=== PATIENT | male | born 1950 | race Caucasian/White ===

== ENCOUNTER 2016-12-04 07:30 | Inpatient (IN) | payer BC, OTHER ==
[~2016-12-04 07:30] MED LIST: CHLORHEXIDINE GLUC HIBICLENS 118 ML BTL TP ONE; ceFAZolin 2 GM/DEXTROSE 100 ML IV ONE
[2016-12-04] MEDS ORDERED: THROMBIN (RECOMBINANT) 20,000 UNIT VIAL TP ONE (08:02)
[2016-12-04] MEDS ORDERED: BACITRACIN 50,000 UNITS/10 ML SYR IRR ONE ×2 (08:03→13:41)
[2016-12-04] MEDS ORDERED: BUPIVACAINE/EPI 0.25% 30 ML SDV ONE (08:03)
[2016-12-04] MEDS ORDERED: LIDOCAINE 1% 5 ML SDV ONE (08:40)
[2016-12-04] MEDS ORDERED: LR 1,000 ML IV ONE (09:10)
[2016-12-04] MEDS ORDERED: LIDOCAINE 1% 5 ML SDV ID PRN (09:10)
[2016-12-04] MEDS ORDERED: MIDAZOLAM 2 MG/2 ML VIAL ONE (09:21)
[2016-12-04] MEDS ORDERED: ROCURONIUM 100 MG/10 ML VIAL ONE (09:31)
[2016-12-04] MEDS ORDERED: METOCLOPRAMIDE 10 MG/2 ML VIAL ONE (09:31)
[2016-12-04] MEDS ORDERED: PHENYLEPHRINE 10 MG/ML SDV ONE (09:31)
[2016-12-04] MEDS ORDERED: PROPOFOL/EMULSION 500 MG/50 ML BOTTLE IV ONE ×5 (09:31→13:56)
[2016-12-04] MEDS ORDERED: LIDOCAINE 2% 100 MG/5 ML SYR IVP ONE (09:31)
[2016-12-04] MEDS ORDERED: DEXAMETHASONE 4 MG/ML VIAL ONE ×2 (09:31)
[2016-12-04] MEDS ORDERED: SUGAMMADEX SODIUM 200 MG/2 ML VIAL IVP ONE (14:45)
[2016-12-04] MEDS ORDERED: BISACODYL 10 MG SUPP PR PRN (15:11)
[2016-12-04] MEDS ORDERED: NALOXONE HCL 0.4 MG/ML INJ IVP PRN (15:11)
[2016-12-04] MEDS ORDERED: ONDANSETRON DISINTEGRATING 4 MG TAB PO PRN (15:11)
[2016-12-04] MEDS ORDERED: MAGNESIUM HYDROXIDE 30 ML UDCUP PO PRN (15:11)
[2016-12-04] MEDS ORDERED: ONDANSETRON 4 MG/2 ML VIAL IVP PRN ×2 (15:11)
[2016-12-04] MEDS ORDERED: DIAZEPAM 5 MG TAB PO PRN (15:11)
[2016-12-04] MEDS ORDERED: HYDROmorphONE/DILAUDID 6 MG/30 ML PCA IV PRN (15:11)
[2016-12-04] MEDS ORDERED: HYDROmorphONE/DILAUDID 1 MG/ML SYR IVP PRN (15:11)
[2016-12-04] MEDS ORDERED: DIAZEPAM 10 MG/2 ML SYR IVP PRN (15:11)
[2016-12-04] MEDS ORDERED: TEMAZEPAM 15 MG CAP PO PRN (15:11)
[2016-12-04] MEDS ORDERED: oxyCODONE IR 5 MG TAB PO PRN (15:11)
[2016-12-04] MEDS ORDERED: diphenhydrAMINE 25 MG CAP PO PRN (15:11)
[2016-12-04] MEDS ORDERED: LACTULOSE 20 GM/30 ML UDCUP PO PRN (15:11)
[2016-12-04] MEDS ORDERED: NS W/ 20 KCl/L 1,000 ML IV SCH (15:15)
--- NOTE | 2016-12-04 15:21 | SOAPPROG ---
SOAP Progress Note Assessment/Plan: Post Op Visit: S: Awake and alert. NAD. Pt with expected lower back pain O: AFVSS/PERRLA/EOMI no droop CN 2-12 grossly intact +lt touch 5/5 BUE/BLE = CDI GEMA in place A/P: 65 yo male that is s/p TLIF L4-S1 -orders in place -call with any questions or concerns -pt was seen by Dr Peñaloza as well 12/04/16 15:19 ICD10 Worksheet Patient Problems: Problems Problem Status Onset Arthrodesis status Acute Lumbago Acute Lumbar radicular pain Acute Lumbar stenosis Acute - ICD10 Problem Qualifiers (1) Lumbar stenosis (2) Lumbar radicular pain (3) Arthrodesis status (4) Lumbago Qualifiers: Chronicity: C Back pain laterality: B Sciatica presence: S Sciatica laterality: S
--- NOTE | 2016-12-04 16:13 | GOP ---
DATE OF OPERATION: 12/04/2016 SURGEON: Dionisio Peñaloza MD [employer] DRIVER: SONIA Chappell. PREOPERATIVE DIAGNOSIS: 1. Lumbar spondylosis with lumbar spondylolisthesis L4-5. 2. Severe lumbar disk degenerative disease at L5-S1 with collapse of the disk space and compression of the bilateral exiting L5 nerve roots at L5-S1. 3. Bilateral lumbosacral radiculopathy, low back pain. POSTOPERATIVE DIAGNOSIS: 1. Lumbar spondylosis with lumbar spondylolisthesis L4-5. 2. Severe lumbar disk degenerative disease at L5-S1 with collapse of the disk space and compression of the bilateral exiting L5 nerve roots at L5-S1. 3. Bilateral lumbosacral radiculopathy, low back pain. PROCEDURE PERFORMED: 1. Posterolateral and intervertebral arthrodesis with decompression bilaterally at L4-5 and L5-S1 ( [id number], [id number]). 2. Placement of nonanchored biomechanical intervertebral device L4-5, L5-S1 (62313 x 2). 3. Same incision bone graft harvest, microscope, posterior-lateral segmental instrumentation (55988 ). 4. Spinal stereotaxy. FINDINGS: ESTIMATED BLOOD LOSS: 400 cc. INDICATIONS: Mr. Flores is a 65-year-old with terrible low back pain that is growing worse despit e conservative management with bilateral lumbosacral radiculopathy and radiating pain, both in the l eft and the right leg all the way down to the foot with numbness, and it is particularly his right f oot. MRI demonstrated spondylolisthesis and severe stenosis at L4-5. L5-S1 demonstrated really kayla y severe bilateral recess stenosis. There is no central stenosis, but there was also terrible bilat eral foraminal stenosis for the exiting L5 nerve roots. I suggested 2-level fusion with an attempt to expand the L5-S1 interspace and open up the neural foramen as well as bilateral decompressions at L5-S1 and L4-5. The risk of nerve injury, spinal fluid leak, continued symptoms, pseudoarthrosis, adjacent segment disease, infection, screw and hardware malposition and malfunction and fracture as well as the risk of major vascular injury was discussed. He knew the surgery was relatively routine and had a high probability of success but sometimes fails. He understood this and wanted to procee d. DESCRIPTION OF PROCEDURE: The patient was taken to the operating room and placed in the supine posi tion. General anesthesia was begun. He was flipped prone onto the Lukasz table. Care was taken t o pad all points of contact. His back was sterilely prepped and draped in usual fashion. We had to take careful positioning technique with the left arm which was actually tucked at his side. We wer e unable to get it either below him or up above his head because of left shoulder issues. We were a ble to tuck at his side, and he was then sterilely prepped and draped. The O-arm was introduced hussein rilely to the field. A localizing x-ray was taken. We made a 7-1/2 cm incision above the L4-5, 5-1 interspace. The subcutaneous tissue was dissected using Bovie cautery down through the fascia, and a subperiosteal dissection was made down the inferior lamina of L3, the laminae of L4, L5, and the sacrum was exposed. We decorticated and removed to the bilateral hypertrophic facets bilaterally at L4-5, 5-1, decorticated the TPs of L4-L5 and S1 to create posterolateral arthrodesis in the facet j oints. We attached a Stealth reference frame and using frameless Stealth stereotaxy, placed pedicle screws bilaterally at L4, L5, and S1. We placed 3 bent rods down over the screws and used these to reduce the spondylolisthesis at 4-5. It was reduced to grade 0 spondylolisthesis. We final tighte leighton the cap/ screws according to company specification after distracted between L4-5 and S1. We use d 70 mm rods. We then removed the L5 spinous process, the inferior L4 spinous process for autologou s grafting purposes, introduced the operating microscope and drilled bilateral laminectomies at L4-5 , 5-1. There was really remarkable stenosis at L4-5 and very severe bilateral recess stenosis at L5 -S1 that was really rather impressive, compressing the S1 nerve roots and pushing them medially into the spinal canal. These were completely decompressed down to the mid pedicle of S1, and a nice dec ompression was obtained. We opened both neural foramen at L5-S1. At L4-5, we also performed forami notomies bilaterally. We then removed the left L4-5, 5-1 facet and decompressed the exiting roots a t those levels, and then under the microscope we removed the L5-S1 disk and its cartilaginous endpla shauna. We roughened the subchondral bone to create arthrodesis at that level. We went to L4-5 where we did likewise remove the disk and the cartilaginous endplates from the left-hand side. We roughen ed the subchondral bone to create arthrodesis at L4-5. This level took longer than the L5-S1 level. We placed a small amount of BMP into the intervertebral space, sized both with the [employer] eleva te trials, and then chose a 7 x 28 mm for 5-1 and a 9 x 28 mm for L4-5. We packed bony autograft in prior to insertion of the device. We inserted the device under fluoroscopic guidance and expanded it under fluoroscopic guidance, and they were both in excellent position. We then placed bone poste rolaterally bilaterally from L4-S1. To conclude our arthrodesis placed a subfascial drain and then closed the incision in multiple layers using Vicryl sutures. A running PDS was placed in the skin i tself. There were no complications. Patient tolerated the procedure well. COMPLICATIONS: None. INSTRUMENTATION USED: [employer] pedicle screw instrumentation with elevate expandable cages, a 9 x 28 mm cage at 4-5 and a 7 x 28 mm cage at L5-S1. We used a [employer] 475 system. /[id number]/MODL
[2016-12-04] MEDS ORDERED: fentaNYL 100 MCG/2 ML INJ ONE (16:14)
[2016-12-04] MEDS: HYDROCODONE/APAP 10/325 TAB PO PRN ×2 (18:00→21:30)
[2016-12-04] MEDS ORDERED: FAMOTIDINE 20 MG/NACL 50 ML IV SCH (21:00)
[2016-12-04] MEDS: SENNOSIDES/DOCUSATE SODIUM TAB PO SCH (21:29)
[2016-12-04] MEDS: clonazePAM 0.5 MG TAB PO SCH (21:29)
[2016-12-04] MEDS: morphINE SR 15 MG TAB PO SCH (21:30)
[2016-12-04] MEDS: MELATONIN 3 MG TAB PO SCH (21:30)
[2016-12-05] MEDS ORDERED: CANN-EASE 2 GM TUBE TP ONE (02:08)
[2016-12-05] MEDS: HYDROCODONE/APAP 10/325 TAB PO PRN ×4 (02:36→22:06)
[2016-12-05 05:30] LABS: % IMMATURE GRANULYOCYTES 0.4 % (0.0-1.1); ABSOLUTE IMMATURE GRANULOCYTES 0.05 10^3/uL (0.00-0.10); ADD DIFF? NO; ADD MORPH? NO; ADD SCAN? NO; ATYPICAL LYMPHOCYTE FLAG 0 (0-99); FRAGMENT RBC FLAG 0 (0-99); HEMATOCRIT 38.1 % (40.0-51.0); HEMOGLOBIN 12.7 g/dL (13.7-17.5); LEFT SHIFT FLG 0 (0-99); LIPEMIA HEMOLYSIS FLAG 80 (0-99); MEAN CELL HEMOGLOBIN CONCENTR. 33.3 g/dL (32.4-36.7); MEAN CELL VOLUME 89.9 fL (81.5-99.8); MEAN PLATELET VOLUME 9.5 fL (8.7-11.7); PLATELET CLUMPS FLAG 0 (0-99); PLATELET COUNT 163 10^3/uL (150-400); RED BLOOD CELL COUNT 4.24 10^6/uL (4.40-6.38)
[2016-12-05 05:44] LABS: ANION GAP 6 mEq/L (8-16); CALCIUM 8.9 mg/dL (8.5-10.4); CARBON DIOXIDE 24 mEq/l (22-31); CHLORIDE 107 mEq/L (97-110); GLOMERULAR FILTRATION RATE > 60; GLUCOSE 110 mg/dL (70-100); POTASSIUM 4.5 mEq/L (3.5-5.2); SODIUM 137 mEq/L (134-144)
--- NOTE | 2016-12-05 07:59 | NEUSURGPN ---
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 Pt with expected lower back pain. No dunn/neck/chest/abd or gu complaints. No f/c/n/v/d. Objective: AFVSS/PERRLA/EOMI no droop CN 2-12 grossly intact +lt touch 5/5 BUE/BLE = CDI GEMA in place Neuro Check Frequency: per routine Urinary Catheter in Place: No Catheter Insertion Date: 12/04/16 - Physician Discussed Patient with DrJessy: Jh Patient Seen by : Jh Neurosurgery Physical Exam - Vitals, I&O, Labs I and O 12/04/16 12/05/16 12/06/16 05:59 05:59 05:59 Intake Total 2550 Output Total 1875 Balance 675 Weight 102.058 kg Intake: Oral (ml) 950 IV Intake (ml) 900 IV Infused (ml) 700 Famotidine 20 mg/NaCl 50 50 ml @ 200 mls/hr IV Q12HRS [facility] Rx#:[id number] NS W/ 20 KCl/L 1,000 ml @ 600 75 mls/hr IV CONT [facility] Rx #:[id number] ceFAZolin 1 GM/DEXTROSE 50 50 ml @ 200 mls/hr IV Q8H [facility] Rx#:[id number] Output: Urine (ml) 1000 Catheter 1000 Estimated Blood Loss (ml) 400 Wound Drainage (ml) 405 #1 Back Lukasz Miguel 405 Wound Drainage (ml) 70 Back Lukasz Miguel 70 Other: Intake Quantity Yes Sufficient Number of Voids Catheter 1 Vital Signs Temp Pulse Resp BP Pulse Ox 37.0 C 62 14 93/62 L 95 12/05/16 07:22 12/05/16 07:22 12/05/16 07:22 12/05/16 07:22 12/05/16 07:22 Laboratory Results 12/05/16 05:12 12/05/16 05:12 ICD10 Worksheet Patient Problems: Problems Problem Status Onset Arthrodesis status Acute Lumbago Acute Lumbar radicular pain Acute Lumbar stenosis Acute - ICD10 Problem Qualifiers (1) Lumbar stenosis (2) Lumbar radicular pain (3) Arthrodesis status (4) Lumbago Qualifiers: Chronicity: C Back pain laterality: B Sciatica presence: S Sciatica laterality: S
[2016-12-05] MEDS: morphINE SR 15 MG TAB PO SCH ×2 (10:16→22:07)
[2016-12-05] MEDS: METHOCARBAMOL 750 MG TAB PO PRN ×2 (10:17→18:09)
[2016-12-05] MEDS: FAMOTIDINE 20 MG TAB PO SCH ×2 (10:17→22:06)
[2016-12-05] MEDS: SENNOSIDES/DOCUSATE SODIUM TAB PO SCH ×2 (10:18→22:07)
[2016-12-05] MEDS: LISINOPRIL 10 MG TAB PO SCH (10:19)
[2016-12-05] MEDS: POLYETHYLENE GLYCOL 3350 17 GM PKT PO PRN (10:19)
[2016-12-05] MEDS: ATORVASTATIN CALCIUM 10 MG TAB PO SCH (10:19)
[2016-12-05] MEDS: clonazePAM 0.5 MG TAB PO SCH (22:06)
[2016-12-05] MEDS: MELATONIN 3 MG TAB PO SCH (22:06)
[2016-12-06] MEDS: HYDROCODONE/APAP 10/325 TAB PO PRN (05:45)
--- NOTE | 2016-12-06 08:24 | NEUSURGPN ---
Assessment/Plan: Assessment: 65 yo male that is s/p TLIF L4-S1 POD #2 Plan: -s/p TLIF at L4-S1: pt with expected lower back pain, legs feel fine -post op xrays show stable hardware -PT/OT pending -brace when out of bed -GEMA removed -Continue PO meds -call with any questions or concerns -pt d/w Dr Peñaloza as well Subjective: Pt resting in bed, denies any new or worsening symptoms. Ambulating well. Objective: AAOx3 NAD VSS MAEx4 Motor 5/5 BLE Incision cdi +LT Urinary Catheter in Place: No Catheter Insertion Date: 12/04/16 - Physician Discussed Patient with : Jh Neurosurgery Physical Exam - Vitals, I&O, Labs I and O 12/05/16 12/06/16 12/07/16 05:59 05:59 05:59 Intake Total 2550 450 450 Output Total 1875 145 Balance 675 305 450 Weight 102.058 kg Intake: Oral (ml) 950 450 450 IV Intake (ml) 900 IV Infused (ml) 700 Famotidine 20 mg/NaCl 50 50 ml @ 200 mls/hr IV Q12HRS [facility] Rx#:[id number] NS W/ 20 KCl/L 1,000 ml @ 600 75 mls/hr IV CONT [facility] Rx #:[id number] ceFAZolin 1 GM/DEXTROSE 50 50 ml @ 200 mls/hr IV Q8H [facility] Rx#:[id number] Output: Urine (ml) 1000 Catheter 1000 Estimated Blood Loss (ml) 400 Wound Drainage (ml) 405 145 #1 Back Lukasz Miguel 405 145 Wound Drainage (ml) 70 Back Lukasz Miguel 70 Other: Intake Quantity Yes Sufficient Number of Voids Catheter 1 Toilet 2 Vital Signs Temp Pulse Resp BP Pulse Ox 37.6 C 68 16 132/78 H 91 L 12/06/16 08:19 12/06/16 08:19 12/06/16 08:19 12/06/16 08:19 12/06/16 08:19 Laboratory Results 12/05/16 05:12 12/05/16 05:12 ICD10 Worksheet Patient Problems: Problems Problem Status Onset Arthrodesis status Acute Lumbago Acute Lumbar radicular pain Acute Lumbar stenosis Acute
[2016-12-06] MEDS: SENNOSIDES/DOCUSATE SODIUM TAB PO SCH ×2 (09:03→21:22)
[2016-12-06] MEDS: morphINE SR 15 MG TAB PO SCH ×2 (09:03→21:22)
[2016-12-06] MEDS: FAMOTIDINE 20 MG TAB PO SCH ×2 (09:03→21:21)
[2016-12-06] MEDS: LISINOPRIL 10 MG TAB PO SCH (09:03)
[2016-12-06] MEDS: ATORVASTATIN CALCIUM 10 MG TAB PO SCH (09:03)
[2016-12-06] MEDS: POLYETHYLENE GLYCOL 3350 17 GM PKT PO PRN (12:02)
[2016-12-06] MEDS: ACETAMINOPHEN 325 MG TAB PO PRN (17:12)
[2016-12-06 17:23] LABS: COLOR YELLOW; LEUKOCYTE ESTERASE,URINE NEGATIVE (NEGATIVE); NITRITE,URINE NEGATIVE (NEGATIVE)
[2016-12-06 17:25] LABS: ANION GAP 10 mEq/L (8-16); CALCIUM 9.2 mg/dL (8.5-10.4); CARBON DIOXIDE 26 mEq/l (22-31); CHLORIDE 99 mEq/L (97-110); CREATININE 1.2 mg/dL (0.7-1.3); GLOMERULAR FILTRATION RATE > 60; GLUCOSE 119 mg/dL (70-100); POTASSIUM 4.6 mEq/L (3.5-5.2); SODIUM 135 mEq/L (134-144)
[2016-12-06 17:41] LABS: HEMATOCRIT 38.1 % (40.0-51.0); HEMOGLOBIN 12.6 g/dL (13.7-17.5); MEAN CELL HEMOGLOBIN 30.3 pg (27.9-34.1); MEAN CELL HEMOGLOBIN CONCENTR. 33.1 g/dL (32.4-36.7); MEAN CELL VOLUME 91.6 fL (81.5-99.8); RED BLOOD CELL COUNT 4.16 10^6/uL (4.40-6.38); RED CELL DISTRIBUTION WIDTH 13.1 % (11.5-15.2)
[2016-12-06] MEDS: clonazePAM 0.5 MG TAB PO SCH (21:21)
[2016-12-06] MEDS: MELATONIN 3 MG TAB PO SCH (21:21)
--- NOTE | 2016-12-06 23:44 | GCON ---
INTERNAL MEDICINE CONSULTATION DATE OF CONSULTATION: 12/06/2016 REFERRING PHYSICIAN: SHAMAR Reyes SURGEON: Dr. Dionisio Peñaloza. REASON FOR CONSULTATION: Medical opinion regarding possible pneumonia. HISTORY OF PRESENT ILLNESS: The patient is a 65-year-old male who underwent a TLIF of L4 through S1 . He is postoperative day #2 and was scheduled to go home today. Instead, he spiked a high fever a t 4 o'clock of 38.8. He felt really lousy and weak. He is developing a worsening sore throat. He has had minimal cough. He is feeling a little better now. He did drop his oxygen saturations a lit tle to 89% on room air. PAST MEDICAL HISTORY: 1. Hypertension. 2. Hyperlipidemia. 3. Very mild asthma. MEDICATIONS: Please see computer record for full detailed list. ALLERGIES: No known drug allergies. SOCIAL HISTORY: No smoking. Occasional alcohol. He lives with his . REVIEW OF SYSTEMS: Complete review of systems obtained. Review of systems is negative regarding co nstitutional, HEENT, GI, pulmonary, vascular, , hematology, skin, musculoskeletal, endocrine, psyc h except for positives as per HPI. FAMILY HISTORY: Reviewed and noncontributory to presenting complaint. PHYSICAL EXAMINATION: GENERAL: Well-developed, well-nourished male, in no acute distress. VITAL S IGNS: Temperature is 38.8, pulse 71, blood pressure 139/65, saturating 89% on room air. HEENT: No rmal conjunctivae. Pupils react to light. ENT: Normal ears and nose. Hearing intact. Normal winter th. Oropharynx moist. NECK: Trachea midline. No thyromegaly. CHEST: Normal effort. Lungs devika r to auscultation bilaterally. CARDIOVASCULAR: Regular rate and rhythm. No murmur. No lower extr emity edema. ABDOMEN: Soft, nontender. No hepatosplenomegaly. SKIN: Warm, dry, intact. No rash . MUSCULOSKELETAL: No cyanosis or clubbing. Strength 5/5 upper and lower extremities. NEUROLOGIC : Cranial nerves intact. Normal sensation to light touch. PSYCH: Alert and oriented x3. Normal mood and affect. Normal judgment. Normal memory. LABORATORY: White count 7.69, hematocrit 38.1, platelets . Sodium 135, potassium 4.6, chloride 99, bicarb 26, BUN 23, creatinine 1.2, glucose 119. Urinalysis is negative. Chest x-ray shows bilateral lower lobe pneumonia, right greater than left. ASSESSMENT AND PLAN: I discussed this case with Heath Gracia, Neurosurgery PA. He felt the patient likely had pneumonia, but asks our opinion regarding antibiotic usage. 1. Pneumonia. He does have evidence of fever and new infiltrate. We will start him on Levaquin. We will also check for influenza as it does sound possibly viral with his sore throat, although sore throat may be due to his recent intubation. 2. Hypertension. We will continue his lisinopril. 3. Transforaminal lumbar interbody fusion L4 through S1. He is doing well. He is cleared by Neuro surgery to go home when otherwise medically stable. Thank you very much for this consultation. Hospitalist Medicine will continue to follow. /[id number]/MODL
[2016-12-07] MEDS: HYDROCODONE/APAP 10/325 TAB PO PRN (00:24)
[2016-12-07 05:55] LABS: % IMMATURE GRANULYOCYTES 0.3 % (0.0-1.1); ABSOLUTE IMMATURE GRANULOCYTES 0.02 10^3/uL (0.00-0.10); ADD DIFF? NO; ADD MORPH? NO; ADD SCAN? NO; ATYPICAL LYMPHOCYTE FLAG 0 (0-99); FRAGMENT RBC FLAG 0 (0-99); HEMOGLOBIN 11.2 g/dL (13.7-17.5); LEFT SHIFT FLG 0 (0-99); LIPEMIA HEMOLYSIS FLAG 90 (0-99); MEAN CELL HEMOGLOBIN 30.4 pg (27.9-34.1); MEAN CELL HEMOGLOBIN CONCENTR. 33.9 g/dL (32.4-36.7); MEAN CELL VOLUME 89.4 fL (81.5-99.8); MEAN PLATELET VOLUME 9.2 fL (8.7-11.7); PLATELET CLUMPS FLAG 10 (0-99); PLATELET COUNT 135 10^3/uL (150-400); RED BLOOD CELL COUNT 3.69 10^6/uL (4.40-6.38)
[2016-12-07 06:07] LABS: ANION GAP 4 mEq/L (8-16); CALCIUM 8.6 mg/dL (8.5-10.4); CARBON DIOXIDE 27 mEq/l (22-31); CHLORIDE 103 mEq/L (97-110); CREATININE 1.1 mg/dL (0.7-1.3); GLOMERULAR FILTRATION RATE > 60; GLUCOSE 99 mg/dL (70-100); POTASSIUM 4.4 mEq/L (3.5-5.2); SODIUM 134 mEq/L (134-144)
[2016-12-07] MEDS: SENNOSIDES/DOCUSATE SODIUM TAB PO SCH ×2 (08:02→22:18)
[2016-12-07] MEDS: morphINE SR 15 MG TAB PO SCH ×2 (08:02→22:17)
[2016-12-07] MEDS: FAMOTIDINE 20 MG TAB PO SCH ×2 (08:02→22:16)
[2016-12-07] MEDS: LISINOPRIL 10 MG TAB PO SCH (08:02)
[2016-12-07] MEDS: ATORVASTATIN CALCIUM 10 MG TAB PO SCH (08:02)
[2016-12-07] MEDS: ENOXAPARIN 40 MG/0.4 ML SYR SC SCH (08:11)
--- NOTE | 2016-12-07 09:00 | HOSPPROG ---
Hospitalist Progress Note Assessment/Plan: patient is a 65-year-old male who underwent a TLIF of L4 through S1. He had a fever. Was seen and evaluated by the hospitalist team to see if he had pneumonia. His chest x-ray shows a new infiltrate. Started on Levaquin. Today is my 1st encounter with the patient. Chart reviewed. #. pneumonia - chest x-ray shows a new infiltrate. - Started on Levaquin - negative for flu - blood cx pending - O2 sats on room air ate 89% #. constipation -abdomen round/patient had a bout of nausea this morning -aggressive bowel protocol #. s/p TLIF -doing well with this #. HTN -bp 101/63 - #. Plan: ok to go home but needs f/u with pending blood cultures, will need a repeat chest xray in 6 weeks to assure resolution of pna/ also, needs to have a bowel movement prior to dc Subjective: Jaydon is c/o some nausea that occurred after eating breakfast/ back pain is well managed. Objective: Vital Signs Temp Pulse Resp BP Pulse Ox 37.0 C 69 14 101/63 89 L 12/07/16 07:51 12/07/16 07:51 12/07/16 07:51 12/07/16 08:02 12/07/16 07:51 Laboratory Results 12/07/16 05:36 12/07/16 05:36 12/06/16 12/07/16 12/08/16 05:59 05:59 05:59 Intake Total 450 1250 Output Total 145 350 Balance 305 900 - Physical Exam Constitutional: not in pain, uncomfortable Eyes: PERRL Ears, Nose, Mouth, Throat: hearing normal Cardiovascular: regular rate and rhythym Respiratory: no respiratory distress, reduced air movement (bibasilar but CTA) Gastrointestinal: normoactive bowel sounds, distension Skin: warm Musculoskeletal: no muscle tenderness Neurologic: AAOx3 Psychiatric: interacting appropriately, not anxious ICD10 Worksheet Patient Problems: Problems Problem Status Onset Arthrodesis status Acute Lumbago Acute Lumbar radicular pain Acute Lumbar stenosis Acute
--- NOTE | 2016-12-07 09:22 | SOAPPROG ---
SOAP Progress Note Assessment/Plan: Assessment: 65 yo M POD #3 L4-S1 TLIF Plan: neuro: stable fevers/pneumonia: on levaquin, appreciate IM help with medical issues LSO brace when out of bed PT/OT x-rays look great please call with neuro changes discussed with Dr Mckeon 12/07/16 09:20 Subjective: back pain improving, no leg pain. some chills this am. Objective: Vital Signs Temp Pulse Resp BP Pulse Ox 37.0 C 69 14 101/63 89 L 12/07/16 07:51 12/07/16 07:51 12/07/16 07:51 12/07/16 08:02 12/07/16 07:51 Laboratory Results 12/07/16 05:36 12/07/16 05:36 12/06/16 12/07/16 12/08/16 05:59 05:59 05:59 Intake Total 450 1250 Output Total 145 350 Balance 305 900 AAOX4, +FC PERRL, EOMI, no facial droop 5/5 + light touch C/D/I ICD10 Worksheet Patient Problems: Problems Problem Status Onset Arthrodesis status Acute Lumbago Acute Lumbar radicular pain Acute Lumbar stenosis Acute
[2016-12-07] MEDS ORDERED: BISACODYL 10 MG SUPP PR ONE (11:35)
[2016-12-07] MEDS: POLYETHYLENE GLYCOL 3350 17 GM PKT PO SCH (13:16)
[2016-12-07] MEDS: ACETAMINOPHEN 325 MG TAB PO PRN (18:37)
[2016-12-07] MEDS: METHOCARBAMOL 750 MG TAB PO PRN (18:37)
[2016-12-07 19:51] VITALS: RESP 16
[2016-12-07] MEDS: clonazePAM 0.5 MG TAB PO SCH (22:16)
[2016-12-07] MEDS: MELATONIN 3 MG TAB PO SCH (22:17)
[2016-12-08] MEDS: ACETAMINOPHEN 325 MG TAB PO PRN ×2 (05:18→09:37)
[2016-12-08 08:10] VITALS: BP 110/62; PULSE 69; TEMP 97.9; O2SAT 90
[2016-12-08] MEDS: ENOXAPARIN 40 MG/0.4 ML SYR SC SCH (09:37)
[2016-12-08] MEDS: SENNOSIDES/DOCUSATE SODIUM TAB PO SCH (09:37)
[2016-12-08] MEDS: ATORVASTATIN CALCIUM 10 MG TAB PO SCH (09:38)
[2016-12-08] MEDS: LISINOPRIL 10 MG TAB PO SCH (09:38)
[2016-12-08] MEDS: FAMOTIDINE 20 MG TAB PO SCH (09:38)
[2016-12-08] MEDS: POLYETHYLENE GLYCOL 3350 17 GM PKT PO SCH (09:38)
[2016-12-08] MEDS: METHOCARBAMOL 750 MG TAB PO PRN (09:38)
--- NOTE | 2016-12-08 10:40 | SOAPPROG ---
SOAP Progress Note Assessment/Plan: Assessment: 65 yo M POD #4 L4-S1 TLIF Plan: neuro: stable and doing well :) fevers/pneumonia: on levaquin, appreciate IM help with medical issues, needs 7 days total of abx, blood cultures negative LSO brace when out of bed PT/OT x-rays look great scd/maggie/lovenox for dvt prophylaxis constipation; + BM this am please call with neuro changes discharge home today discussed with Dr Mckeon 12/07/16 09:20 12/08/16 10:39 Subjective: back pain improving, no leg pain, no weakness. no fevers Objective: Vital Signs Temp Pulse Resp BP Pulse Ox 36.6 C 69 16 110/62 90 L 12/08/16 08:09 12/08/16 08:09 12/08/16 08:09 12/08/16 09:38 12/08/16 08:09 Laboratory Results 12/07/16 05:36 12/07/16 05:36 12/07/16 12/08/16 12/09/16 05:59 05:59 05:59 Intake Total 1250 Output Total 350 Balance 900 AAOx4, +FC PERRL, EOMI, no facial droop 5/5 + light touch C/D/I ICD10 Worksheet Patient Problems: Problems Problem Status Onset Arthrodesis status Acute Lumbago Acute Lumbar radicular pain Acute Lumbar stenosis Acute
--- NOTE | 2016-12-08 10:42 | HOSPPROG ---
Hospitalist Progress Note Assessment/Plan: patient is a 65-year-old male who underwent a TLIF of L4 through S1. He had a fever. Was seen and evaluated by the hospitalist team to see if he had pneumonia. His chest x-ray shows a new infiltrate. Started on Levaquin. #. pneumonia - chest x-ray shows a new infiltrate. - Started on Levaquin - negative for flu - blood cx show no growth - O2 sats on room air are stable #. constipation -resolved #. s/p TLIF -doing well with this #. HTN -bp 110/62 - #. Plan: dc home per neurosurgery Subjective: Jaydon is feeling well/ no complaints. Objective: Vital Signs Temp Pulse Resp BP Pulse Ox 36.6 C 69 16 110/62 90 L 12/08/16 08:09 12/08/16 08:09 12/08/16 08:09 12/08/16 09:38 12/08/16 08:09 Laboratory Results 12/07/16 05:36 12/07/16 05:36 12/07/16 12/08/16 12/09/16 05:59 05:59 05:59 Intake Total 1250 Output Total 350 Balance 900 - Physical Exam Constitutional: no apparent distress, appears nourished, not in pain Eyes: PERRL Ears, Nose, Mouth, Throat: hearing normal Cardiovascular: regular rate and rhythym Respiratory: no respiratory distress Gastrointestinal: normoactive bowel sounds, No distension Skin: warm Musculoskeletal: generalized weakness Neurologic: AAOx3 Psychiatric: interacting appropriately, not anxious ICD10 Worksheet Patient Problems: Problems Problem Status Onset Arthrodesis status Acute Lumbago Acute Lumbar radicular pain Acute Lumbar stenosis Acute
[2016-12-08] MEDS: morphINE SR 15 MG TAB PO SCH (10:57)
== END 2016-12-08 15:04 | disposition home or self-care (01) | DRG 459 ==
LOC: F3N 08:35
PROVIDERS: ADMIT Neurological Surgery; ATTEND Neurological Surgery
PROC: 01NB0ZZ Release Lumbar Nerve, Open Approach (ICD-10-PCS; principal; 2016-12-04 09:30)
PROC: 01NR0ZZ Release Sacral Nerve, Open Approach (ICD-10-PCS; principal; 2016-12-04 09:30)
PROC: 0SG30AJ Fusion of Lumbosacral Joint with Interbody Fusion Device, Posterior Approach, Anterior Column, Open Approach (ICD-10-PCS; principal; 2016-12-04 09:30)
PROC: 4A1004G Monitoring of Central Nervous Electrical Activity, Intraoperative, Open Approach (ICD-10-PCS; principal; 2016-12-04 09:30)
PROC: 0SG00AJ Fusion of Lumbar Vertebral Joint with Interbody Fusion Device, Posterior Approach, Anterior Column, Open Approach (ICD-10-PCS; principal; 2016-12-04 09:30)
DX: M43.16 Spondylolisthesis, lumbar region (principal); J18.9 Pneumonia, unspecified organism; K59.00 Constipation, unspecified; M47.27 Other spondylosis with radiculopathy, lumbosacral region; M51.37 Other intervertebral disc degeneration, lumbosacral region; M48.06 Spinal stenosis, lumbar region; M51.36 Other intervertebral disc degeneration, lumbar region; M43.17 Spondylolisthesis, lumbosacral region; M51.26 Other intervertebral disc displacement, lumbar region; I10 Essential (primary) hypertension; E78.5 Hyperlipidemia, unspecified; J45.909 Unspecified asthma, uncomplicated; G47.33 Obstructive sleep apnea (adult) (pediatric); I25.10 Atherosclerotic heart disease of native coronary artery without angina pectoris
CPT/HCPCS: 97116-GP; 97161-GP; 97165-GO; 97530-GP; 97535-GO; C1713; G8978-GP-CJ; G8979-GP-CI; G8980-GP-CI; G8987-GO-CI; G8988-GO-CI; G8989-GO-CI; J0690; J1100; J1650; J1956; J2001; J2250; J2370; J2704; J2765; J3010